=== PATIENT | female | born 1970 ===

== ENCOUNTER 2020-10-24 15:12 | Emergency (ER) | payer OTHER ==
[2020-10-24 16:26] LABS: BASOPHIL 0.7 % (0-2); EOSINOPHIL 3.2 % (0-5); HCT 43.1 % (37.0-47.0); HGB 13.9 g/dl (12.5-16.0); LYMPHOCYTE 32.8 % (15-48); MCH 26.7 pg (25.0-31.0); MCHC 32.3 g/dL (32.0-36.0); MCV 82.7 fL (78.0-100.0); MONOCYTE 5.8 % (0-12); MPV 8.4 fL (6.0-9.5); NEUTROPHIL 57.1 % (41-80); NRBC 0; PLT 281 K/uL (150-400); RBC 5.21 M/uL (4.20-5.40); RDW 14.4 % (11.5-14.0); WBC 7.6 K/uL (4.0-10.5)
[2020-10-24 16:49] LABS: BUN/CREAT RATIO (CALC) 28.4 RATIO; CREATININE 0.67 mg/dL (0.51-0.95); POTASSIUM 3.7 mmol/L (3.5-5.1)
== END 2020-10-24 18:18 | disposition home or self-care (01) ==
LOC: FER 15:12
PROVIDERS: Nurse Practitioner Family
DX: R60.0 Localized edema (principal); J44.9 Chronic obstructive pulmonary disease, unspecified; E03.9 Hypothyroidism, unspecified; Z88.6 Allergy status to analgesic agent; Z79.899 Other long term (current) drug therapy
CPT/HCPCS: 36415; 80048; 83880; 85025; 85379; 99283